=== PATIENT | male | born 1960 | race Caucasian/White ===

== ENCOUNTER 2019-04-11 17:05 | Inpatient (IN) | payer MEDICAID ==
[~2019-04-11] VITALS: Ht 172.7 cm; Wt 75.0 kg
--- NOTE | 2019-04-11 17:17 | NUR ---
Patient uncooperative with EDMD, responds "I don't know" to all questions about medical history.
--- NOTE | 2019-04-11 17:45 | NUR ---
Patient stated that he cannot provide urine sample at this time.
[2019-04-11 17:48] LABS: PARTIAL THROMBOPLASTIN TIME 34 SECONDS (22-32)
[2019-04-11 17:50] LABS: ALANINE AMINOTRANSFERASE 27 U/L (12-78); ALBUMIN 2.1 G/DL (3.4-5.0); ALBUMIN/GLOBULIN RATIO 0.6 (1.1-1.5); ALKALINE PHOSPHATASE 106 IU/L (46-116); ANION GAP 7 (8-16); ASPARTATE AMINO TRANSFERASE 37 U/L (10-37); BILIRUBIN,TOTAL 1.8 MG/DL (0.1-1.0); BLOOD UREA NITROGEN 5 MG/DL (7-18); BUN/CREATININE RATIO 7.9 (6.6-38.0); CALCIUM 7.4 MG/DL (8.5-10.1); CHLORIDE 105 MMOL/L (99-107); CREATININE 0.63 MG/DL (0.40-0.90); GLUCOSE 99 MG/DL (70-104); POTASSIUM 3.2 MMOL/L (3.5-5.1); SODIUM 135 MMOL/L (135-145); TOTAL CARBON DIOXIDE 23.5 MMOL/L (24-32); TOTAL PROTEIN 5.8 G/DL (6.4-8.2); eGFR > 90 ML/MIN
[2019-04-11 17:56] LABS: ETHANOL 0.018 GM/DL (0.0-0.010); LIPASE 356 U/L (73-393); MAGNESIUM 1.6 MG/DL (1.5-2.4)
[2019-04-11] MEDS ORDERED: potassium Cl 20 mEq SR tablet PO ONE (18:10)
--- NOTE | 2019-04-11 18:37 | NUR ---
Pt requesting food. Denies N/V. Pt denies CP at this time.
--- NOTE | 2019-04-11 18:53 | NUR ---
Pt provided meal. Pt sitting up at bedside eating unassisted, tolerating well. No c/o N/V, still continues to deny CP. Will continue to monitor
[2019-04-11 19:15] LABS: HEMATOCRIT 27.5 % (35.0-45.0); HEMOGLOBIN 9.8 g/dl (12.0-16.0); MEAN CORPUSCULAR HEMOGLOBIN 34.5 PG (27.0-31.0); RED BLOOD COUNT 2.83 X10'6 (4.20-5.60)
[2019-04-11 19:17] LABS: MEAN CORPUSCULAR HGB CONC 35.5 g/dL (33.0-36.5); MEAN CORPUSCULAR VOLUME 97.4 FL (78-98); WHITE BLOOD COUNT 3.8 X10'3 (4.5-11.0)
[2019-04-11 19:38] LABS: PLATELET COUNT 89 X10'3 (140-440)
[2019-04-11 19:43] LABS: TOTAL CELLS COUNTED 100
[2019-04-11 19:44] LABS: ACANTHOCYTES FEW; ANISOCYTOSIS 1+; PLATELET ESTIMATE DECREASED
[2019-04-11] MEDS ORDERED: NO HOME MEDS (20:34)
[2019-04-11 20:50] LABS: URINE AMPHETAMINE SCREEN NEGATIVE (Neg); URINE BARBITUATE SCREEN NEGATIVE (Neg); URINE BENZODIAZEPINES SCREEN NEGATIVE (Neg); URINE CANNABINOID SCREEN NEGATIVE (Neg); URINE COCAINE SCREEN NEGATIVE (Neg); URINE METHADONE SCREEN NEGATIVE (Neg); URINE OPIATE SCREEN NEGATIVE (Neg); URINE PHENCYCLIDINE SCREEN NEGATIVE (Neg)
[2019-04-11] MEDS ORDERED: mag hydrox/Alum hydrox/simeth 30ml oral suspension PO PRN (23:35)
[2019-04-11] MEDS ORDERED: potassium CL 10mEq/100ml bag 100 ML IV PRN ×2 (23:35)
[2019-04-11] MEDS ORDERED: magnesium hydroxide 30ml (MOM) UD suspension PO PRN (23:35)
[2019-04-11] MEDS ORDERED: magnesium 4gm in 100ml NS 100 ML IV PRN (23:35)
[2019-04-11] MEDS ORDERED: HYDROcodone/acetaminophen 5mg/325mg tablet PO PRN (23:35)
[2019-04-11] MEDS ORDERED: acetaminophen 325mg tablet PO PRN (23:35)
[2019-04-11] MEDS ORDERED: magnesium Cl slow-release 64mg tablet PO PRN (23:35)
[2019-04-11] MEDS ORDERED: ondansetron/PF 4mg/2ml inj IV PRN (23:35)
[2019-04-11] MEDS ORDERED: potassium Cl 20 mEq SR tablet PO PRN ×2 (23:35)
[2019-04-11] MEDS ORDERED: magnesium 2GM in 50ml NS 50 ML IV PRN (23:35)
[2019-04-11] MEDS ORDERED: LORazepam 2 mg/ml vial IV PRN (23:45)
[2019-04-11] MEDS ORDERED: thiamine inj. 100 MG in normal saline 100ml IV soln 100 ML IV ONE (23:45)
[2019-04-11] MEDS ORDERED: LORazepam 1 MG tablet PO PRN (23:45)
--- NOTE | 2019-04-12 02:04 | NUR ---
PT PLACED ON HOSPITAL BED FOR COMFORT.
[2019-04-12 06:09] LABS: ALANINE AMINOTRANSFERASE 19 U/L (12-78); ALBUMIN/GLOBULIN RATIO 0.4 (1.1-1.5); ALKALINE PHOSPHATASE 111 IU/L (46-116); ANION GAP 5 (8-16); ASPARTATE AMINO TRANSFERASE 44 U/L (10-37); BILIRUBIN,TOTAL 1.8 MG/DL (0.1-1.0); BLOOD UREA NITROGEN 5 MG/DL (7-18); BUN/CREATININE RATIO 7.9 (6.6-38.0); CALCIUM 7.9 MG/DL (8.5-10.1); CHLORIDE 109 MMOL/L (99-107); CREATININE 0.63 MG/DL (0.40-0.90); GLUCOSE 95 MG/DL (70-104); POTASSIUM 3.6 MMOL/L (3.5-5.1); SODIUM 139 MMOL/L (135-145); TOTAL CARBON DIOXIDE 25.5 MMOL/L (24-32); TOTAL PROTEIN 6.5 G/DL (6.4-8.2); eGFR > 90 ML/MIN
[2019-04-12 06:13] LABS: MAGNESIUM 1.8 MG/DL (1.5-2.4)
[2019-04-12] MEDS: K and/or MAG REPLACEMENT MC SCH ×2 (08:00→20:00)
[2019-04-12 08:16] LABS: BASOPHILS % (AUTO) 1.3 % (0-1); EOSINOPHILS # (AUTO) 0.1 X10'3 (0-0.9); EOSINOPHILS % (AUTO) 2.6 % (0-6); HEMATOCRIT 28.4 % (42.0-52.0); HEMOGLOBIN 9.8 g/dl (14.0-17.9); LYMPHOCYTES # (AUTO) 0.9 X10'3 (1.1-4.8); MEAN CORPUSCULAR HEMOGLOBIN 33.8 PG (27.0-31.0); MEAN CORPUSCULAR HGB CONC 34.5 g/dL (33.0-36.5); MEAN CORPUSCULAR VOLUME 97.7 FL (78-98); MEAN PLATELET VOLUME 7.8 FL (7.4-10.4); MONOCYTES # (AUTO) 0.5 X10'3 (0-0.9); MONOCYTES % (AUTO) 14.3 % (2-12); NEUTROPHILS # (AUTO) 2.1 X10'3 (1.8-7.7); NEUTROPHILS % (AUTO) 57.8 % (42-75); PLATELET COUNT 82 X10'3 (140-440); RED BLOOD COUNT 2.91 X10'6 (4.70-6.10); RED CELL DISTRIBUTION WIDTH 15.3 % (11.5-14.5); WHITE BLOOD COUNT 3.7 X10'3 (4.5-11.0)
[2019-04-12 08:21] VITALS: BP 101/63
[2019-04-12 14:26] LABS: D-DIMER 8.07 MG/L FEU (0-0.50)
[2019-04-12 18:00] VITALS: BP 91/51
--- NOTE | 2019-04-12 18:00 | NUR ---
Patient in room [facility]. I have received report from Agus FERRARA and had the opportunity to ask questions and assume patient care. Addendum: 04/13/19 at 0012 by Shelia Lopez RN Amended: Links added.
--- NOTE | 2019-04-12 18:15 | NUR ---
Problems reprioritized. Patient report given, questions answered & plan of care reviewed with ALEM Bass.
--- NOTE | 2019-04-12 21:00 | NUR ---
Pt. awake A & O sitting up on the bed side. NO complaint at this time. Call light within reach. Addendum: 04/13/19 at 0142 by Shelia Lopez RN Amended: Links added.
[2019-04-12] MEDS ORDERED: nitroGLYCERIN 0.4mg SUBLingual tab SL PRN (22:50)
[2019-04-12] MEDS ORDERED: aminophylline 250mg/10ml inj. IV PRN (22:50)
[2019-04-12] MEDS ORDERED: regadenoson 0.4mg/5ml syringe IV ONE (22:50)
[2019-04-12] MEDS ORDERED: metoprolol tartrate 1mg/ml inj IV PRN (22:50)
[2019-04-13] VITALS (11 sets, daily range): BP systolic 88–125; BP diastolic 50–68
--- NOTE | 2019-04-13 06:00 | NUR ---
Problems reprioritized. Patient report given Yudith FERRARA, questions answered & plan of care reviewed with . Addendum: 04/13/19 at 0807 by Shelia Lopez RN Amended: Links added.
[2019-04-13 06:28] LABS: ALANINE AMINOTRANSFERASE 25 U/L (12-78); ALBUMIN/GLOBULIN RATIO 0.5 (1.1-1.5); ALKALINE PHOSPHATASE 95 IU/L (46-116); ANION GAP 4 (8-16); ASPARTATE AMINO TRANSFERASE 36 U/L (10-37); BILIRUBIN,TOTAL 2.3 MG/DL (0.1-1.0); BLOOD UREA NITROGEN 6 MG/DL (7-18); BUN/CREATININE RATIO 9.7 (5.4-32.0); CALCIUM 7.5 MG/DL (8.5-10.1); CHLORIDE 102 MMOL/L (99-107); CREATININE 0.62 MG/DL (0.60-1.10); GLUCOSE 89 MG/DL (70-104); MAGNESIUM 1.6 MG/DL (1.5-2.4); POTASSIUM 3.6 MMOL/L (3.5-5.1); SODIUM 131 MMOL/L (135-145); TOTAL CARBON DIOXIDE 25.4 MMOL/L (24-32); TOTAL PROTEIN 5.9 G/DL (6.4-8.2); eGFR > 90 ML/MIN
[2019-04-13] MEDS: K and/or MAG REPLACEMENT MC SCH (07:15)
[2019-04-13 09:34] LABS: EOSINOPHILS # (AUTO) 0.1 X10'3 (0-0.9); MONOCYTES # (AUTO) 0.6 X10'3 (0-0.9); NEUTROPHILS # (AUTO) 2.4 X10'3 (1.8-7.7)
[2019-04-13 09:36] LABS: BASOPHILS % (AUTO) 1.1 % (0-1); EOSINOPHILS % (AUTO) 2.4 % (0-6); HEMATOCRIT 27.2 % (42.0-52.0); HEMOGLOBIN 9.6 g/dl (14.0-17.9); LYMPHOCYTES % (AUTO) 23.9 % (21-51); MEAN CORPUSCULAR HEMOGLOBIN 34.3 PG (27.0-31.0); MEAN CORPUSCULAR HGB CONC 35.2 g/dL (33.0-36.5); MEAN CORPUSCULAR VOLUME 97.6 FL (78-98); MONOCYTES % (AUTO) 13.8 % (2-12); NEUTROPHILS % (AUTO) 58.8 % (42-75); RED BLOOD COUNT 2.79 X10'6 (4.70-6.10)
[2019-04-13 09:53] LABS: MEAN PLATELET VOLUME 7.3 FL (7.4-10.4); PLATELET COUNT 86 X10'3 (140-440); WHITE BLOOD COUNT 3.3 X10'3 (4.5-11.0)
--- NOTE | 2019-04-13 10:30 | NUR ---
Nasal swab positive mrsa. Dr notified.
--- NOTE | 2019-04-13 14:05 | NUR ---
pt discharged via wheelchair with aide to the front door. Pt is homeless and wanted wheelchair ride to front door. Once he got downstairs aidsyd Rivas says he decided he wanted a cab and then got frustrated and walked away. Pt alert, oriented and medically clear for discharge. All belongings taken from room. IV taken out by nursing home manager. No new meds. Pt instructed to follow up with pcp/[facility] and come back to ER with any issues.
--- NOTE | 2019-04-13 17:06 | NUR ---
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
== END 2019-04-13 14:05 | disposition home or self-care (01) | DRG 203 ==
LOC: ER 17:06 → EDBD 17:06 → EDSEX 23:37 → ED HOLD 23:37 → SUR 3N 04-12 08:10 → OBSVTOIN 04-12 14:39
PROVIDERS: ADMIT Internal Medicine; ATTEND Internal Medicine
PROC: 4A02XM4 Measurement of Cardiac Total Activity, External Approach (ICD-10-PCS; principal; 2019-04-13)
PROC: 3E033HZ Introduction of Radioactive Substance into Peripheral Vein, Percutaneous Approach (ICD-10-PCS; 2019-04-13)
DX: R07.89 Other chest pain (principal); D69.6 Thrombocytopenia, unspecified; K72.90 Hepatic failure, unspecified without coma; Z86.73 Personal history of transient ischemic attack (TIA), and cerebral infarction without residual deficits; D64.9 Anemia, unspecified; F17.210 Nicotine dependence, cigarettes, uncomplicated
CPT/HCPCS: 36415; 71045; 78452; 80053; 80305; 80320; 83690; 83735; 83880; 84484; 85025; 85379; 85610; 85730; 87081; 93017; A9500; G0378; J2785; J3411